=== PATIENT | female | born 1990 | race Caucasian/White ===

== ENCOUNTER 2020-08-14 00:17 | Emergency (ER) | payer SELFPAY ==
[~2020-08-14] VITALS: Ht 167.6 cm; Wt 86.2 kg
--- NOTE | 2020-08-14 00:25 | NUR ---
CALLED TO TRIAGE ROOM IN WAITING ROOM, NO ANSWER.
--- NOTE | 2020-08-14 00:50 | NUR ---
pt bibself c/o of rt 4th digit pain s/p falling to her rt side. pt [id number] breathing evenly and unlabored. pt attached to monitor and pox. upon assessement, rt 4th digit has some bruising and swelling. Skin is warm, dry, and intact. Pt given blanket and call light within reach
--- NOTE | 2020-08-14 00:52 | NUR ---
xray at bedside
--- NOTE | 2020-08-14 01:03 | NUR ---
urine sent to lab
[2020-08-14] MEDS ORDERED: IBUP-1957 PO (01:17)
[2020-08-14] MEDS: IBUPROFEN 600 MG TABLET PO ONE (01:20)
[2020-08-14] MEDS ORDERED: IBUPROFEN 600 MG TABLET ONE (01:21)
--- NOTE | 2020-08-14 01:24 | NUR ---
Patient discharged to home in stable condition. Written and verbal after care instructions given. Patient verbalizes understanding of instruction. Pt ambulatory with a steady gait
[2020-08-14 02:06] VITALS: BP 130/92
== END 2020-08-14 01:24 | disposition home or self-care (01) ==
LOC: ER 00:20
DX: S63.8X1A Sprain of other part of right wrist and hand, initial encounter (principal); S60.041A Contusion of right ring finger without damage to nail, initial encounter; Z88.0 Allergy status to penicillin; W01.0XXA Fall on same level from slipping, tripping and stumbling without subsequent striking against object, initial encounter; Y93.89 Activity, other specified; Y92.89 Other specified places as the place of occurrence of the external cause; Y99.8 Other external cause status
CPT/HCPCS: 73130-TC; 84703-TC